=== PATIENT | female | born 1955 | race Caucasian/White ===

== ENCOUNTER → 2018-09-20 | Outpatient (CLI) | payer MEDICAID ==
--- NOTE | 2018-09-20 19:25 | ECHOF ---
Referral Reason:R01.1 Cardiac Murmur MEASUREMENTS -------- HEIGHT: 170.2 cm WEIGHT: 79.4 kg BP: IVSd: 1.2 cm (0.6 - 1.1) LVIDd: 4.2 cm (3.9 - 5.3) LVPWd: 1.2 cm (0.6 - 1.1) IVSs: 1.4 cm LVIDs: 2.7 cm LVPWs: 1.6 cm LA Diam: 3.2 cm (2.7 - 3.8) RVIDd: 3.1 cm (< 3.3) Ao Diam: 3.1 cm (2.0 - 3.7) LA Diam: 3.7 cm (2.7 - 3.8) AV Cusp: 1.8 cm (1.5 - 2.6) EPSS: 0.8 cm MV E Oz: 0.67 m/s MV DecT: 218 ms MV A Oz: 0.84 m/s MV E/A Ratio: 0.80 RAP: 5.00 mmHg RVSP: 32.40 mmHg MV EF SLOPE: 85.68 mm/s (70 - 150) MV EXCURSION: 1.90 cm (> 18.000) FINDINGS -------- Sinus rhythm. This was a technically good study. Overall left ventricular systolic function is normal with, an EF between 55 - 60 %. The right ventricle is normal in size. The left atrial size is normal. The right atrial size is normal. Interatrial and interventricular septum intact. The aortic valve is trileaflet, and appears structurally normal. No aortic stenosis or regurgitation. Mild mitral regurgitation is present. Mild tricuspid regurgitation present. There is no evidence of pulmonary hypertension. The right v entricular systolic pressure, as measured by Doppler, is 32.40mmHg. Trace/mild (physiologic) pulmonic regurgitation. The aortic root size is normal. Normal inferior vena cava with normal inspiratory collapse consistent with estimated right atrial pre ssure of 5 mmHg. There is no pericardial effusion. CONCLUSIONS -------- 1. Sinus rhythm. 2. This was a technically good study. 3. Overall left ventricular systolic function is normal with, an EF between 55 - 60 %. 4. The right ventricle is normal in size. 5. The left atrial size is normal. 6. The right atrial size is normal. 7. Interatrial and interventricular septum intact. 8. The aortic valve is trileaflet, and appears structurally normal. No aortic stenosis or regurgitati on. 9. Mild mitral regurgitation is present. 10. Mild tricuspid regurgitation present. 11. There is no evidence of pulmonary hypertension. 12. The right ventricular systolic pressure, as measured by Doppler, is 32.40mmHg. 13. Trace/mild (physiologic) pulmonic regurgitation. 14. The aortic root size is normal. 15. Normal inferior vena cava with normal inspiratory collapse consistent with estimated right atrial pressure of 5 mmHg. 16. There is no pericardial effusion. AUTOMOBILE REPOSSESSOR: Rubi Pickett RDCS
--- NOTE | 2018-09-20 19:29 | EST ---
EXERCISE STRESS DATE OF SERVICE: 09/20/2018 AGE: 63 SEX: Fe HT: 67" WT: 175 lbs PROTOCOL: Minh STAGE: III DURATION OF EXERCISE: 7 minutes HEART RATE REST: 73 BLOOD PRESSURE REST: 155/91 MAXIMUM HEART RATE ACHIEVED: 140 MAXIMUM BLOOD PRESSURE: 181/65 85% MPHR: 135 100% MPHR: 159 METS: 8.5 INDICATIONS: Chest pain. RESULTS: Baseline heart rate 73 beats per minute. Baseline blood pressure 155/91 mmHg. Baseline 12-lead ECG shows normal sinus rhythm with normal cardiac intervals. The patient exercised on Minh protocol for 7 minutes achieving a peak heart rate of 140 beats per minute. Normal blood pressure response to exercise. There was no ECG evidence for ischemia. Septal PVCs were noted. No ST-segment abnormalities noted. No clinical evidence for ischemia. IMPRESSION: Average exercise capacity. Occasional PVCs. No ECG evidence for ischemia. MMODL / IJN: [id number] /
== END | disposition home or self-care (01) ==
LOC: RADNMMAIN 08:33
PROVIDERS: ATTEND Internal Medicine
DX: I37.1 Nonrheumatic pulmonary valve insufficiency (principal)
CPT/HCPCS: 93017; 93306

== ENCOUNTER 2020-02-21 09:45 | Emergency (ER) | payer MEDICAID ==
[2020-02-21 09:51] VITALS: TEMP 98.4
[2020-02-21 10:06] VITALS: RESP 20
[2020-02-21] MEDS ORDERED: NYSTATIN 100,000 UNIT/ML SUSP 500,000 UNIT/5 ML CUP PO STA (10:31)
--- NOTE | 2020-02-21 10:36 | ED ---
ENT HPI - General Chief complaint: ENT Stated complaint: poss infection in mouth Time Seen by Provider: 02/21/20 09:59 Source: patient, RN notes reviewed, old records reviewed Mode of arrival: ambulatory Limitations: no limitations - History of Present Illness Initial comments: Patient is a 65-year-old female presents emergency department today for eval uation for irritation over her tongue today while she was at work. She states she noticed the film over her tongue. She's been treated with clindamycin for a bone graft infection in her teeth. She reports she lives in [place] and talked to her dentist today and told her to come to the ER for evaluation. Patient arrives to the ER today and reports that she did not take her blood pressure medicines at this time. She reports that she found be hypertensive. She's also on her menses distress. Patient states that they did recently just her blood pressure medications. She states that she has no jaw pain chest pain shortness of breath. She denies any significant redness or swelling or tenderness to the outside of her mouth. - Related Data Home Medications Medication Instructions Recorded Confirmed lisinopriL [Zestril] 10 mg PO DAILY 04/28/16 04/29/16 Previous Rx's Medication Instructions Recorded Nystatin 100,000 Unit/ml Susp 4 ml PO QID #160 ml 02/21/20 [Mycostatin Oral Susp] Allergies Allergy/AdvReac Type Severity Reaction Status Date / Time Iodine and Iodide Containing Allergy Anaphylaxis Verified 02/21/20 09:51 Produc Review of Systems ROS Statement: Those systems with pertinent positive or pertinent negative responses have been documented in the HPI. ROS Other: All systems not noted in ROS Statement are negative. Past Medical History Past Medical History: Hyperlipidemia, Hypertension History of Any Multi-Drug Resistant Organisms: None Reported Past Surgical History: Tubal Ligation Additional Past Surgical History / Comment(s): bone graft Past Anesthesia/Blood Transfusion Reactions: Motion Sickness Smoking Status: Never smoker Past Alcohol Use History: Occasional Past Drug Use History: None Reported - Past Family History Mother Family Medical History: No Reported History General Exam - General Exam Comments Initial Comments: 65-year-old female. Alert and oriented. No significant distress. Limitations: no limitations General appearance: alert, in no apparent distress Head exam: Present: atraumatic, normocephalic, normal inspection Eye exam: Present: normal appearance, PERRL, EOMI. Absent: scleral icterus, conjunctival injection, periorbital swelling ENT exam: Present: normal exam, mucous membranes moist, other (Patient has evidence of left lower molar removal. No erythema or drainage. Tongue has white thin film over it roof of mouth.) Neck exam: Present: normal inspection. Absent: tenderness, meningismus, lymphadenopathy Respiratory exam: Present: normal lung sounds bilaterally. Absent: respiratory distress, wheezes, rales, rhonchi, stridor Cardiovascular Exam: Present: regular rate, normal rhythm, normal heart sounds. Absent: systolic murmur, diastolic murmur, rubs, gallop, clicks GI/Abdominal exam: Present: soft, normal bowel sounds. Absent: distended, tenderness, guarding, rebound, rigid Back exam: Present: normal inspection Neurological exam: Present: alert, oriented X3, CN II-XII intact Psychiatric exam: Present: normal affect, normal mood Skin exam: Present: warm, dry, intact, normal color. Absent: rash Course Vital Signs 02/21/20 02/21/20 09:46 10:05 Temperature 98.4 F Pulse Rate 77 70 Respiratory 16 20 Rate Blood Pressure 202/94 213/101 O2 Sat by Pulse 99 100 Oximetry Medical Decision Making - Medical Decision Making 65-year-old female presents returns today for thin film over her tongue in her throat after taking clindamycin for dental infection. Patient findings seem to be consistent with thrush. She has no jaw pain or tenderness. Bone graft insight seems to appear well with no erythema. Patient was on the hypertensive did take her daily blood pressure medicines recheck. Advised Patient to follow- up with PCP in regards to her blood pressure. Patient was started on nystatin rinse and advised following up with her dentist or she has an appointment next week. Disposition Clinical Impression: Thrush, Episode of hypertension Disposition: HOME SELF-CARE Condition: Good Instructions (If sedation given, give patient instructions): Oral Candidiasis (ED) Additional Instructions: Advised to use the nystatin rinse and swish and swallow and spit for the next few days. Patient can follow-up with her dentist. Recommended following up with PCP in regards to elevated blood pressure as well. Return to the ED if any alarming signs or symptoms occur. Prescriptions: Nystatin 100,000 Unit/ml Susp [Mycostatin Oral Susp] 4 ml PO QID #160 ml Is patient prescribed a controlled substance at d/c from ED?: No Referrals: Dayan Murdock MD [Primary Care Provider] - 1-2 days Time of Disposition: 10:34
[2020-02-21 11:03] VITALS: BP 183/85; PULSE 65
== END 2020-02-21 10:59 | disposition home or self-care (01) ==
LOC: EC 09:45
DX: B37.0 Candidal stomatitis (principal); I10 Essential (primary) hypertension; Z79.899 Other long term (current) drug therapy; Z91.048 Other nonmedicinal substance allergy status
CPT/HCPCS: 99283

== ENCOUNTER 2020-07-19 19:44 | Emergency (ER) | payer MEDICAID ==
[2020-07-19 19:50] VITALS: TEMP 98.7
--- NOTE | 2020-07-19 20:35 | ED ---
General Adult HPI - General Chief complaint: Recheck/Abnormal Lab/Rx Stated complaint: High blood pressure Time Seen by Provider: 07/19/20 20:32 Source: patient Mode of arrival: ambulatory Limitations: no limitations - History of Present Illness Initial comments: Patient is a 65-year-old female past medical history of hypertension and hyperlipidemia who presents emergency Department with reported hypertension. 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 Reports that she was not feeling well earlier today and therefore she took her blood pressure. It was noted to be high. States that she does have a history of hypertension the last she was evaluated for it was 1 year ago. At that time the patient did have some difficulties controlling her high blood pressure however Dr. Murdock increased her lisinopril 20 mg and told her to follow up. Patient states that she never did. She normally does not measure her blood pressure frequently. She admits to mild associated blurred vision. No headaches. Denies any chest pain or shortness of breath. Triage note states the patient has tightness in her arm however she denies this to me. No abdominal pain. No fevers or chills. States she has been taking her medications as directed. No changes in her bowel or bladder habits. No history of diabetes. No other alleviating, precipitating or or modifying factors - Related Data Home Medications Medication Instructions Recorded Confirmed lisinopriL [Zestril] 10 mg PO DAILY 04/28/16 04/29/16 Previous Rx's Medication Instructions Recorded Nystatin 100,000 Unit/ml Susp 4 ml PO QID #160 ml 02/21/20 [Mycostatin Oral Susp] amLODIPine [Norvasc] 5 mg PO DAILY #30 tab 07/19/20 Allergies Allergy/AdvReac Type Severity Reaction Status Date / Time Iodine and Iodide Containing Allergy Anaphylaxis Verified 02/21/20 09:51 Produc Review of Systems ROS Statement: Those systems with pertinent positive or pertinent negative responses have been documented in the HPI. ROS Other: All systems not noted in ROS Statement are negative. Past Medical History Past Medical History: Hyperlipidemia, Hypertension History of Any Multi-Drug Resistant Organisms: None Reported Past Surgical History: Tubal Ligation Additional Past Surgical History / Comment(s): bone graft Past Anesthesia/Blood Transfusion Reactions: Motion Sickness Smoking Status: Never smoker Past Alcohol Use History: Occasional Past Drug Use History: None Reported - Past Family History Mother Family Medical History: No Reported History General Exam Limitations: no limitations General appearance: alert, in no apparent distress Head exam: Present: atraumatic, normocephalic, normal inspection Eye exam: Present: normal appearance, PERRL, EOMI. Absent: scleral icterus, conjunctival injection, periorbital swelling ENT exam: Present: normal exam, mucous membranes moist Neck exam: Present: normal inspection. Absent: tenderness, meningismus, lymphadenopathy Respiratory exam: Present: normal lung sounds bilaterally. Absent: respiratory distress, wheezes, rales, rhonchi, stridor Cardiovascular Exam: Present: regular rate, normal rhythm, normal heart sounds. Absent: systolic murmur, diastolic murmur, rubs, gallop, clicks GI/Abdominal exam: Present: soft, normal bowel sounds. Absent: distended, tenderness, guarding, rebound, rigid Extremities exam: Present: normal inspection, full ROM, normal capillary refill. Absent: tenderness, pedal edema, joint swelling, calf tenderness Back exam: Present: normal inspection Neurological exam: Present: alert, oriented X3, CN II-XII intact Psychiatric exam: Present: normal affect, normal mood Skin exam: Present: warm, dry, intact, normal color. Absent: rash Course Vital Signs 07/19/20 07/19/20 07/19/20 19:47 21:00 21:59 Temperature 98.7 F Pulse Rate 107 H 83 64 Respiratory 18 19 19 Rate Blood Pressure 219/112 191/93 171/84 O2 Sat by Pulse 99 99 97 Oximetry EKG Findings - EKG Comments: EKG Findings:: EKG demonstrates normal sinus rhythm with ventricular rate of 76. MN interval 144. QRS 92. QTC of 436. No acute ST segment elevations or depression. Q waves in lead 3. Medical Decision Making - Medical Decision Making The patient was placed into room 1. A thorough history and physical exam was performed. 12-lead EKG was performed. IV is established. Laboratory studies were conducted and a chest x-ray was performed. Laboratory studies were reviewed and do demonstrate a mild increase in the patient's creatinine. Chest x-ray demonstrates no acute process. Patient was given a dose of Norvasc. Does have improvement in her blood pressures during her ER stay. I did discuss the diagnosis, differential and treatment options. Did recommend that the patient follow up with Dr. Murdock in office within 2-4 days. I will start the patient on Norvasc 5 mg. She is to take this medication the morning. Continue taking her lisinopril at night. I requested that she keep a blood pressure log of her blood pressures twice daily. Patient was reevaluated after she was given Norvasc 5 in the emergency room and states that she does have improvement in her vision changes at this time. Patient feels comfortable going home. Instructed to call the office in the morning. Return to the emergency room for any new or worsening symptoms. Patient agreed to this treatment plan and was discharged home in stable condition - Lab Data Result diagrams: 07/19/20 20:04 07/19/20 20:04 Lab Results 07/19/20 07/19/20 07/19/20 Range/Units 20:04 20:04 20:04 WBC 5.8 (3.8-10.6) k/uL RBC 4.17 (3.80-5.40) m/uL Hgb 12.8 (11.4-16.0) gm/dL Hct 37.6 (34.0-46.0) % MCV 90.1 (80.0-100.0) fL MCH 30.7 (25.0-35.0) pg MCHC 34.0 (31.0-37.0) g/dL RDW 12.7 (11.5-15.5) % Plt Count 212 (150-450) k/uL MPV 7.7 Neutrophils % 57 % Lymphocytes % 27 % Monocytes % 8 % Eosinophils % 5 % Basophils % 1 % Neutrophils # 3.3 (1.3-7.7) k/uL Lymphocytes # 1.6 (1.0-4.8) k/uL Monocytes # 0.5 (0-1.0) k/uL Eosinophils # 0.3 (0-0.7) k/uL Basophils # 0.1 (0-0.2) k/uL PT 9.6 (9.0-12.0) sec INR 0.9 (<1.2) APTT 22.3 (22.0-30.0) sec Sodium 138 (137-145) mmol/L Potassium 4.0 (3.5-5.1) mmol/L Chloride 100 (98-107) mmol/L Carbon Dioxide 26 (22-30) mmol/L Anion Gap 12 mmol/L BUN 17 (7-17) mg/dL Creatinine 1.19 H (0.52-1.04) mg/dL Est GFR (CKD-EPI)AfAm 56 (>60 ml/min/1.73 sqM) Est GFR (CKD-EPI)NonAf 49 (>60 ml/min/1.73 sqM) Glucose 107 H (74-99) mg/dL Calcium 10.0 (8.4-10.2) mg/dL Magnesium (1.6-2.3) mg/dL Total Bilirubin 0.5 (0.2-1.3) mg/dL AST 29 (14-36) U/L ALT 23 (4-34) U/L Alkaline Phosphatase 59 (38-126) U/L Troponin I (0.000-0.034) ng/mL NT-Pro-B Natriuret Pep pg/mL Total Protein 8.0 (6.3-8.2) g/dL Albumin 5.1 H (3.5-5.0) g/dL 07/19/20 07/19/20 07/19/20 Range/Units 20:04 20:04 20:04 WBC (3.8-10.6) k/uL RBC (3.80-5.40) m/uL Hgb (11.4-16.0) gm/dL Hct (34.0-46.0) % MCV (80.0-100.0) fL MCH (25.0-35.0) pg MCHC (31.0-37.0) g/dL RDW (11.5-15.5) % Plt Count (150-450) k/uL MPV Neutrophils % % Lymphocytes % % Monocytes % % Eosinophils % % Basophils % % Neutrophils # (1.3-7.7) k/uL Lymphocytes # (1.0-4.8) k/uL Monocytes # (0-1.0) k/uL Eosinophils # (0-0.7) k/uL Basophils # (0-0.2) k/uL PT (9.0-12.0) sec INR (<1.2) APTT (22.0-30.0) sec Sodium (137-145) mmol/L Potassium (3.5-5.1) mmol/L Chloride (98-107) mmol/L Carbon Dioxide (22-30) mmol/L Anion Gap mmol/L BUN (7-17) mg/dL Creatinine (0.52-1.04) mg/dL Est GFR (CKD-EPI)AfAm (>60 ml/min/1.73 sqM) Est GFR (CKD-EPI)NonAf (>60 ml/min/1.73 sqM) Glucose (74-99) mg/dL Calcium (8.4-10.2) mg/dL Magnesium 2.1 (1.6-2.3) mg/dL Total Bilirubin (0.2-1.3) mg/dL AST (14-36) U/L ALT (4-34) U/L Alkaline Phosphatase (38-126) U/L Troponin I <0.012 (0.000-0.034) ng/mL NT-Pro-B Natriuret Pep 98 pg/mL Total Protein (6.3-8.2) g/dL Albumin (3.5-5.0) g/dL Disposition Clinical Impression: High blood pressure Disposition: HOME SELF-CARE Condition: Stable Instructions (If sedation given, give patient instructions): Hypertension (ED) Additional Instructions: Please follow-up with Dr. Murdock your scheduled appointment. Take your blood pressure reading twice a day. Take the new blood pressure as directed. Return to the emergency room for any new or worsening symptoms Prescriptions: amLODIPine [Norvasc] 5 mg PO DAILY #30 tab Is patient prescribed a controlled substance at d/c from ED?: No Referrals: Dayan Murdock MD [Primary Care Provider] - 1-2 days Time of Disposition: 23:22
[2020-07-19 20:37] LABS: Basophils # (A) 0.1 k/uL (0-0.2); Basophils % (A) 1 %; Eosinophils # (A) 0.3 k/uL (0-0.7); Eosinophils % (A) 5 %; HCT 37.6 % (34.0-46.0); HGB 12.8 gm/dL (11.4-16.0); Lymphocytes # (A) 1.6 k/uL (1.0-4.8); Lymphocytes % (A) 27 %; MCH 30.7 pg (25.0-35.0); MCV 90.1 fL (80.0-100.0); Mean Platelet Volume 7.7; Monocytes # (A) 0.5 k/uL (0-1.0); Monocytes % (A) 8 %; Neutrophils # (A) 3.3 k/uL (1.3-7.7); Neutrophils % (A) 57 %; Platelet Count 212 k/uL (150-450); RBC 4.17 m/uL (3.80-5.40); RDW 12.7 % (11.5-15.5); WBC 5.8 k/uL (3.8-10.6)
[2020-07-19 20:49] LABS: Albumin 5.1 g/dL (3.5-5.0); Total Bilirubin 0.5 mg/dL (0.2-1.3)
[2020-07-19 21:01] VITALS: RESP 19
[2020-07-19 21:01] LABS: INR 0.9 (<1.2); Partial Thromboplastin Time 22.3 sec (22.0-30.0); Prothrombin Time 9.6 sec (9.0-12.0)
--- NOTE | 2020-07-19 21:04 | XR ---
EXAMINATION TYPE: XR chest 2V DATE OF EXAM: 07/19/2020 COMPARISON: None available. HISTORY: Chest pain. TECHNIQUE: Frontal and lateral views of the chest are obtained. FINDINGS: There is no focal air space opacity, pleural effusion, or pneumothorax seen. The cardiac silhouette size is within normal limits. The osseous structures are intact. IMPRESSION: No acute cardiopulmonary process.
[2020-07-19 21:59] VITALS: BP 171/84; PULSE 64
[2020-07-19] MEDS ORDERED: amLODIPine 5 MG TAB PO STA (22:08)
== END 2020-07-19 23:42 | disposition home or self-care (01) ==
LOC: EC 19:44
DX: I10 Essential (primary) hypertension (principal); Z79.899 Other long term (current) drug therapy; Z91.048 Other nonmedicinal substance allergy status
CPT/HCPCS: 36415; 71046; 80053; 83735; 83880; 84484; 85025; 85610; 85730; 93005; 99284

== ENCOUNTER → 2020-08-22 | Outpatient (CLI) | payer MEDICAID ==
[2020-08-23 02:41] LABS: African American GFR (CKD) 78.9 (60.0-200.0)
== END | disposition home or self-care (01) ==
LOC: LABWHC1 14:22
PROVIDERS: ATTEND Internal Medicine
DX: R94.4 Abnormal results of kidney function studies (principal)
CPT/HCPCS: 36415; 82565; 84520

== ENCOUNTER → 2020-12-05 | Outpatient (CLI) | payer MEDICAID ==
[2020-12-05 15:40] LABS: African American GFR (CKD) 78.9 (60.0-200.0); Albumin 5.1 g/dL (3.80-4.90); Albumin/Globulin Ratio 2.22 (1.60-3.17); Anion Gap 11.6 mmol/L (4.00-12.00); BUN/Creat Ratio 13.33 Ratio (12.00-20.00); Calcium 9.8 mg/dL (8.7-10.3); Carbon Dioxide 27.4 mmol/L (21.6-31.8); Chol/HDL Ratio 3.6; Globulin 2.3 g/dL (1.6-3.3); Potassium 4.3 mmol/L (3.5-5.5); Total Bilirubin 0.6 mg/dL (0.3-1.2); Total Protein 7.4 g/dL (6.2-8.2)
== END | disposition home or self-care (01) ==
LOC: LABWHC1 07:10
PROVIDERS: ATTEND Internal Medicine
DX: E78.5 Hyperlipidemia, unspecified (principal); I10 Essential (primary) hypertension
CPT/HCPCS: 36415; 80053; 80061

== ENCOUNTER → 2020-12-13 | Outpatient (CLI) | payer MEDICAID ==
[2020-12-14 03:04] LABS: T4, Free (Free Thyroxine) 1.2 ng/dL (0.80-1.80)
== END | disposition home or self-care (01) ==
LOC: LABWHC1 11:06
PROVIDERS: ATTEND Internal Medicine Interventional Cardiology
DX: G47.30 Sleep apnea, unspecified (principal); E78.5 Hyperlipidemia, unspecified
CPT/HCPCS: 36415; 84439; 84443

== ENCOUNTER → 2020-12-31 | Outpatient (CLI) | payer MEDICAID ==
--- NOTE | 2021-01-01 09:12 | ECHOF ---
Referral Reason:bradycardia R00.1 MEASUREMENTS -------- HEIGHT: 170.2 cm WEIGHT: 76.2 kg BP: RVIDd: 3.9 cm (< 3.3) IVSd: 1.4 cm (0.6 - 1.1) LVIDd: 4.0 cm (3.9 - 5.3) LVPWd: 1.3 cm (0.6 - 1.1) IVSs: 1.7 cm LVIDs: 2.4 cm LVPWs: 1.9 cm LAESV Index (A-L): 24.36 ml/m Ao Diam: 3.1 cm (2.0 - 3.7) AV Cusp: 1.9 cm (1.5 - 2.6) MV EXCURSION: 20.130 mm (> 18.000) MV EF SLOPE: 85 mm/s (70 - 150) EPSS: 0.8 cm MV E Oz: 1.06 m/s MV DecT: 223 ms MV A Oz: 1.31 m/s MV E/A Ratio: 0.81 RAP: 5.00 mmHg RVSP: 29.17 mmHg FINDINGS -------- Sinus rhythm. This was a technically good study. The left ventricular size is normal. There is mild concentric left ventricular hypertrophy. Overa ll left ventricular systolic function is normal with, an EF between 55 - 60 %. The diastolic fillin g pattern is normal for the age of the patient 17.26. The right ventricle is mild to moderately enlarged. Normal LA size by volume 22+/-6 ml/m2. The right atrial size is normal. Interatrial and interventricular septum intact. The aortic valve is trileaflet and appears structurally normal. There is no evidence of aortic regu rgitation. There is no evidence of aortic stenosis. No mitral regurgitation. Mild tricuspid regurgitation present. There is no evidence of pulmonary hypertension. The right v entricular systolic pressure, as measured by Doppler, is 29.17mmHg. There is no pulmonic regurgitation present. The aortic root size is normal. Normal inferior vena cava with normal inspiratory collapse consistent with estimated right atrial pre ssure of 5 mmHg. There is no pericardial effusion. CONCLUSIONS -------- 1. The left ventricular size is normal. 2. There is mild concentric left ventricular hypertrophy. 3. Overall left ventricular systolic function is normal with, an EF between 55 - 60 %. 4. The diastolic filling pattern is normal for the age of the patient 17.26 5. The right ventricle is mild to moderately enlarged. 6. Mild tricuspid regurgitation present. SUPERVISOR COSTUMING: Gissel Leach RDCS
== END | disposition home or self-care (01) ==
LOC: RADECHMAIN 13:29
PROVIDERS: ATTEND Internal Medicine Interventional Cardiology
DX: I07.1 Rheumatic tricuspid insufficiency (principal); R00.1 Bradycardia, unspecified
CPT/HCPCS: 93306

== ENCOUNTER → 2021-03-28 | Outpatient (CLI) | payer MEDICAID ==
[2021-03-28 15:58] LABS: African American GFR (CKD) 83.9 (60.0-200.0); Albumin 5.2 g/dL (3.8-4.9); Albumin/Globulin Ratio 2.13 (1.60-3.17); Anion Gap 15.7 mmol/L (4.00-12.00); BUN/Creat Ratio 14.71 Ratio (12.00-20.00); Blood Urea Nitrogen 12.5 mg/dL (9.0-27.0); Calcium 10.3 mg/dL (8.7-10.3); Carbon Dioxide 23.8 mmol/L (21.6-31.8); Chol/HDL Ratio 3.45 Ratio; Globulin 2.5 g/dL (1.6-3.3); HDL Cholesterol 85.7 mg/dL (40.00-60.00); LDL Cholesterol,Calculated 184.7 mg/dL (0.0-131.0); Non-African American GFR(CKD) 72.4 (60.0-200.0); Potassium 4.1 mmol/L (3.5-5.5); Total Bilirubin 0.4 mg/dL (0.30-1.20); Total Protein 7.7 g/dL (6.2-8.2); VLDL Calculation 25.6 mg/dL (5.00-40.00)
== END | disposition home or self-care (01) ==
LOC: LABWHC1 07:00
PROVIDERS: ATTEND Internal Medicine
DX: N28.9 Disorder of kidney and ureter, unspecified (principal); I10 Essential (primary) hypertension; E78.00 Pure hypercholesterolemia, unspecified
CPT/HCPCS: 36415; 80053; 80061

== ENCOUNTER 2021-05-13 20:35 | Emergency (ER) | payer MEDICAID ==
[2021-05-13 20:52] VITALS: BP 139/100; PULSE 78; RESP 16; TEMP 97.9
--- NOTE | 2021-05-13 21:41 | ED ---
General Adult HPI - General Chief complaint: Weakness Stated complaint: confusion, lab recheck Time Seen by Provider: 05/13/21 20:50 Source: patient Mode of arrival: ambulatory Limitations: no limitations - History of Present Illness Initial comments: Kimberlee is a 66-year-old female who presents to the ER today for evaluation of generalized weakness and abnormal outpatient labs. Patient reports she was admitted to the hospital in June for hypertensive urgency and acute kidney injury. She states at that time she has had close follow-up with her primary care physician she notes that over the past couple time she's had her blood work her anion gap is been elevated. When she Dr. primary care doctor she told them she is also feeling generalized and malaise. No other acute complaints. Patient also stressed concerned that she may have an abnormal uric acid level she has not had it checked in the past. She does not have gallops though she does suffer from what she describes as tennis elbow right elbow. - Related Data Home Medications Medication Instructions Recorded Confirmed lisinopriL [Zestril] 10 mg PO DAILY 04/28/16 04/29/16 Previous Rx's Medication Instructions Recorded Nystatin 100,000 Unit/ml Susp 4 ml PO QID #160 ml 02/21/20 [Mycostatin Oral Susp] amLODIPine [Norvasc] 5 mg PO DAILY #30 tab 07/19/20 Allergies Allergy/AdvReac Type Severity Reaction Status Date / Time Iodine and Iodide Containing Allergy Anaphylaxis Verified 02/21/20 09:51 Produc Review of Systems ROS Statement: Those systems with pertinent positive or pertinent negative responses have been documented in the HPI. ROS Other: All systems not noted in ROS Statement are negative. Past Medical History Past Medical History: Hyperlipidemia, Hypertension History of Any Multi-Drug Resistant Organisms: None Reported Past Surgical History: Tubal Ligation Additional Past Surgical History / Comment(s): bone graft Past Anesthesia/Blood Transfusion Reactions: Motion Sickness Past Psychological History: No Psychological Hx Reported Smoking Status: Never smoker Past Alcohol Use History: Occasional Past Drug Use History: None Reported - Past Family History Mother Family Medical History: No Reported History General Exam - General Exam Comments Initial Comments: Physical Exam GENERAL: Patient is well-developed and well-nourished. Patient is nontoxic and well-hydrated and is in no distress. HENT: Normocephalic, Atraumatic. EYES: PERRL, EOMI PULMONARY: Unlabored respirations. CARDIOVASCULAR: RRR Warm and well perfused extremities ABDOMEN: Non-distended SKIN: No rashes or bruising : Deferred NEUROLOGIC: Alert and oriented Normal speech Normal gait MUSCULOSKELETAL: Moving all extremities with no apparent injury PSYCHIATRIC: No SI/HI Limitations: no limitations Course Vital Signs 05/13/21 20:48 Temperature 97.9 F Pulse Rate 78 Respiratory 16 Rate Blood Pressure 139/100 O2 Sat by Pulse 99 Oximetry Medical Decision Making - Medical Decision Making The patient was seen and evaluated, history is obtained from the patient and review of medical record Review labs were obtained and were relatively unremarkable. Very minimal hyponatremia, anion gap is normal electrolytes otherwise normal urine is normal is no proteinuria At this time the patient has had a medical screening exam and lab work she has no acute medical emergencies stable for discharge home continued outpatient management - Lab Data Result diagrams: 05/13/21 22:30 05/13/21 22:30 Lab Results 05/13/21 05/13/21 05/13/21 Range/Units 21:37 22:30 22:30 WBC 5.0 (3.8-10.6) k/uL RBC 4.38 (3.80-5.40) m/uL Hgb 13.2 (11.4-16.0) gm/dL Hct 39.9 (34.0-46.0) % MCV 91.2 (80.0-100.0) fL MCH 30.2 (25.0-35.0) pg MCHC 33.1 (31.0-37.0) g/dL RDW 12.4 (11.5-15.5) % Plt Count 201 (150-450) k/uL MPV 7.6 Neutrophils % 65 % Lymphocytes % 21 % Monocytes % 9 % Eosinophils % 2 % Basophils % 1 % Neutrophils # 3.3 (1.3-7.7) k/uL Lymphocytes # 1.1 (1.0-4.8) k/uL Monocytes # 0.5 (0-1.0) k/uL Eosinophils # 0.1 (0-0.7) k/uL Basophils # 0.0 (0-0.2) k/uL Sodium 136 L (137-145) mmol/L Potassium 3.8 (3.5-5.1) mmol/L Chloride 101 (98-107) mmol/L Carbon Dioxide 25 (22-30) mmol/L Anion Gap 10 mmol/L BUN 13 (7-17) mg/dL Creatinine 0.84 (0.52-1.04) mg/dL Est GFR (CKD-EPI)AfAm 85 (>60 ml/min/1.73 sqM) Est GFR (CKD-EPI)NonAf 74 (>60 ml/min/1.73 sqM) Glucose 106 H (74-99) mg/dL Uric Acid 5.7 (3.7-7.4) mg/dL Calcium 9.9 (8.4-10.2) mg/dL Magnesium 2.0 (1.6-2.3) mg/dL Total Bilirubin 0.6 (0.2-1.3) mg/dL AST 33 (14-36) U/L ALT 29 (4-34) U/L Alkaline Phosphatase 79 (38-126) U/L Total Protein 7.6 (6.3-8.2) g/dL Albumin 4.7 (3.5-5.0) g/dL Urine Color Colorless Urine Appearance Clear (Clear) Urine pH 5.0 (5.0-8.0) Ur Specific [place] 1.002 (1.001-1.035) Urine Protein Negative (Negative) Urine Glucose (UA) Negative (Negative) Urine Ketones Negative (Negative) Urine Blood Negative (Negative) Urine Nitrite Negative (Negative) Urine Bilirubin Negative (Negative) Urine Urobilinogen <2.0 (<2.0) mg/dL Ur Leukocyte Esterase Negative (Negative) Disposition Clinical Impression: Generalized weakness Disposition: HOME SELF-CARE Condition: Stable Additional Instructions: Your laboratory studies today have normalized, please follow up with your primary doctor for re-evaluation of chronic problems Is patient prescribed a controlled substance at d/c from ED?: No Referrals: Dayan Murdock MD [Primary Care Provider] - 1-2 days
[2021-05-13 21:45] LABS: Appearance,Urine Clear (Clear); Bilirubin,Urine Negative (Negative); Blood,Urine Negative (Negative); Color,Urine Colorless; Glucose,Urine (UA) Negative (Negative); Ketones,Urine Negative (Negative); Leukocyte Esterase,Urine Negative (Negative); Nitrite,Urine Negative (Negative); Protein,Urine Negative (Negative); Specific Gravity,Urine 1.002 (1.001-1.035); Urobilinogen,Urine <2.0 mg/dL (<2.0)
[2021-05-13 22:35] LABS: Basophils % (A) 1 %; Eosinophils # (A) 0.1 k/uL (0-0.7); Eosinophils % (A) 2 %; HCT 39.9 % (34.0-46.0); HGB 13.2 gm/dL (11.4-16.0); Lymphocytes # (A) 1.1 k/uL (1.0-4.8); Lymphocytes % (A) 21 %; MCH 30.2 pg (25.0-35.0); MCHC 33.1 g/dL (31.0-37.0); MCV 91.2 fL (80.0-100.0); Mean Platelet Volume 7.6; Monocytes # (A) 0.5 k/uL (0-1.0); Monocytes % (A) 9 %; Neutrophils # (A) 3.3 k/uL (1.3-7.7); Neutrophils % (A) 65 %; Platelet Count 201 k/uL (150-450); RBC 4.38 m/uL (3.80-5.40); RDW 12.4 % (11.5-15.5)
[2021-05-13 23:04] LABS: Albumin 4.7 g/dL (3.5-5.0); Calcium 9.9 mg/dL (8.4-10.2); Potassium 3.8 mmol/L (3.5-5.1); Total Bilirubin 0.6 mg/dL (0.2-1.3); Total Protein 7.6 g/dL (6.3-8.2); Uric Acid 5.7 mg/dL (3.7-7.4)
== END 2021-05-13 23:22 | disposition home or self-care (01) ==
LOC: EC 20:35
DX: R53.1 Weakness (principal); I10 Essential (primary) hypertension; Z88.8 Allergy status to other drugs, medicaments and biological substances; Z79.899 Other long term (current) drug therapy
CPT/HCPCS: 36415; 80053; 81003; 83735; 84550; 85025; 99284

== ENCOUNTER → 2021-08-14 | Outpatient (CLI) | payer MEDICAID ==
--- NOTE | 2021-08-15 09:51 | CT ---
EXAMINATION TYPE: CT heart w calcium score DATE OF EXAM: 08/14/2021 COMPARISON: None HISTORY: Screening for cardiovascular disorder. 213.9 CT DLP: 69.5 mGycm Automated exposure control for dose reduction was used. CT CALCIUM SCORING Coronary calcium is a marker for plaque (fatty deposits) in a blood vessel or atherosclerosis (harden ing of the arteries). The presence and amount of calcium detected in a coronary artery by the CT sca n, indicates the presence and amount of atherosclerotic plaque. These calcium deposits appear years before the development of heart disease symptoms such as chest pain and shortness of breath. A calcium score is computed for each of the coronary arteries based upon the volume and density of th e calcium deposits. This can be referred to as your calcified plaque burden. It does not correspond directly to the percentage of narrowing in the artery but does correlate with the severity of the un derlying coronary atherosclerosis. PROCEDURE TECHNIQUE - Prospective Gating was used. Slice thickness: 3mm. Density threshold (HU): 130, Pixel threshold: 3, Algorithm: discrete. RESULTS Region: LM Calcium Score ([place]): 0 Volume (mm3): 0 Mass (g): 0 Region: RCA Calcium Score ([place]): 0 Volume (mm3): 0 Mass (g): 0 Region: LAD Calcium Score ([place]): 39.02 Volume (mm3): 11.41 Mass (g): 34.23 Region: CX Calcium Score ([place]): 0 Volume (mm3): 0 Mass (g): 0 Region: PDA Calcium Score ([place]): 0 Volume (mm3): 0 Mass (g): 0 Total: Calcium Score ([place]): 39.02 Volume (mm3): 11.41 Mass (g): 34.23 TOTAL CALCIUM SCORE: 39.02 Atherosclerotic change of the aorta. There is a splenic granuloma and calcified splenic aneurysm cara uring 1 cm. 5 mm subpleural nodule left upper lobe. IMPRESSION: Calcium Score: 39.02 Implication: Definite, at least mild atherosclerotic plaque Risk of Coronary Artery Disease: Mild or minimal coronary artery risk CALCIUM SCORE IMPLICATION RISK OF C ORONARY ARTERY DISEASE 0 No identifiable plaque Very low, generally less than 5% 1-10 Minimal identifiable plaque Very unlikely, less than 10% 11-100 Definite, at least mild atherosclerotic plaque Mild or m inimal coronary narrowings likely 101-400 Definite, at least moderate atherosclerotic plaque Mild coronary ar daylin disease highly likely, significant narrowing possible 401 or Higher Extensive atherosclerotic plaque High lik elihood of at least one significant coronary narrowing
== END | disposition home or self-care (01) ==
LOC: RADCTMAIN 14:52
PROVIDERS: ATTEND Internal Medicine Interventional Cardiology
DX: I25.10 Atherosclerotic heart disease of native coronary artery without angina pectoris (principal)
CPT/HCPCS: 75571

== ENCOUNTER → 2021-11-21 | Outpatient (CLI) | payer MEDICAID ==
[2021-11-21 10:31] LABS: HCT 38.8 % (37.2-46.3); HGB 12.4 g/dL (12.0-15.0); MCH 29.3 pg (27.0-32.0); MCV 91.7 fL (80.0-97.0); Mean Platelet Volume 10.7 fL (9.5-12.2); NRBC Per 100 WBC 0 /100 WBCS (0.0-0.0); Platelet Count 222 X 10*3/uL (140-440); RBC 4.23 X 10*6/uL (4.10-5.20); WBC 4.32 X 10*3/uL (4.50-10.00)
[2021-11-21 10:48] LABS: ALT 25 U/L (8-44); AST 25 U/L (13-35); African American GFR (CKD) 90.3 (60.0-200.0); Albumin 5.1 g/dL (3.8-4.9); Albumin/Globulin Ratio 2.22 (1.60-3.17); Alkaline Phosphatase 62 U/L (41-126); BUN/Creat Ratio 20.13 Ratio (12.00-20.00); Blood Urea Nitrogen 16.1 mg/dL (9.0-27.0); Carbon Dioxide 27.7 mmol/L (20.0-27.5); Chloride 98 mmol/L (96-109); Chol/HDL Ratio 5.05 Ratio; Globulin 2.3 g/dL (1.6-3.3); Glucose 104 mg/dL (70-110); LDL Cholesterol,Calculated 255.9 mg/dL (0.0-131.0); Non-African American GFR(CKD) 77.9 (60.0-200.0); Potassium 4.2 mmol/L (3.5-5.5); Sodium 137 mmol/L (135-145); Total Protein 7.4 g/dL (6.2-8.2)
== END | disposition home or self-care (01) ==
LOC: LABWHC1 07:03
PROVIDERS: ATTEND Internal Medicine
DX: I10 Essential (primary) hypertension (principal); E78.00 Pure hypercholesterolemia, unspecified
CPT/HCPCS: 36415; 80053; 80061; 85027

== ENCOUNTER → 2023-03-31 | Outpatient (CLI) | payer MEDICARE ==
--- NOTE | 2023-03-31 12:50 | BD ---
EXAMINATION TYPE: Axial Bone Density DATE OF EXAM: 03/31/2023 CLINICAL HISTORY: 68 years old Female. ICD-10 CODE: N95.8 OTHER SPECIFIED MENOPAUSAL AND PERIMENOPAU GUANACO Height: 65.5 Weight: 177.0 FRAX RISK QUESTIONS: Alcohol (3 or more units per day): no Family History (Parent hip fracture): no Glucocorticoids (More than 3mos): no (Ex: prednisone, prednisolone, methylprednisolone, dexamethasone, and hydrocortisone). History of Fracture in Adulthood: no Secondary Osteoporosis: 1. Type 1 Diabetes: no 2. Hyperthyroidism: no 3. Menopause before 45: no 4. Malnutrition: no 5. Chronic liver disease: no Rheumatoid Arthritis: no Current Tobacco Use: no RISK FACTORS HISTORY OF: Surgery to Spine/Hip(right/left)/Wrist (right/left): no Family History of Osteoporosis: no Active: yes Diet low in dairy products/other sources of calcium: no Postmenopausal woman: yes MEDICATIONS: Additional History: EXAM MEASUREMENTS: Bone mineral densitometry was performed using the [employer] System. Bone mineral density as measured about the Lumbar spine is: ----- L1-L4(G/cm2): 0.986 T Score Values are as follows: ----- L1: -1.6 ----- L2: -2.0 ----- L3: -2.1 ----- L4: -1.1 ----- L1-L4: -1.6 Z Score Values are as follows: ----- L1: -0.5 ----- L2: -0.9 ----- L3: -1.0 ----- L4: 0.0 ----- L1-L4: -0.5 Bone mineral density : baseline Bone mineral density about the R hip (g/cm2): 1.116 Bone mineral density about the L hip (g/cm2): 1.012 T Score values are as follows: -----R Neck: -0.7 -----L Neck: -1.3 -----R Total: 0.9 -----L Total: 0.0 Z Score values are as follows: -----R Neck: 0.5 -----L Neck: -0.1 -----R Total: 1.7 -----L Total: 0.9 Bone mineral density : baseline FRAX%s: The graph provided illustrates a 8.6 % chance for a major osteoporotic fx and a 0.8% chance f or the hips probability for fx in 10 years time. IMPRESSION: Osteopenia (T Score between -2.5 and -1). There is slightly increased risk of fracture and the patient may be considered for treatment. Re-Screen 2-5 years. NOTE: T-SCORE=SD OF THE YOUNG ADULT MEAN.
== END | disposition home or self-care (01) ==
LOC: RADBDWWP 12:03
PROVIDERS: ATTEND Internal Medicine
DX: M85.89 Other specified disorders of bone density and structure, multiple sites (principal); N95.8 Other specified menopausal and perimenopausal disorders
CPT/HCPCS: 77080